=== PATIENT | male | born 1980 | race Caucasian/White ===

== ENCOUNTER 2018-02-13 15:46 | Emergency (ER) | payer MEDICARE, OTHER ==
[~2018-02-13] VITALS: Ht 170.2 cm; Wt 92.1 kg
[~2018-02-13 15:46] MED LIST: ARIP2TAB35 PO; DIAZ5TAB PO; DIVA500T2 PO; ONDA4TAB10 SL; SERT100T PO
[2018-02-13] MEDS ORDERED: IV NORMAL SALINE 1,000ML 1,000 ML IV SCH (16:11)
[2018-02-13 16:39] LABS: BASO % 0 % (0-3); EOS # 0.1 x10^3/uL (0.0-0.7); EOS % 2 % (0-3); HEMOGLOBIN 14.2 g/dL (13.0-17.5); LYMPH # 2.4 x10^3/uL (1.0-4.8); LYMPH % 41 % (24-48); MEAN CORPUSCULAR HEMOGLOBIN 29 pg (25-35); MEAN CORPUSCULAR HGB CONC 32 g/dL (31-37); MEAN CORPUSCULAR VOLUME 90 fL (79-100); MONO # 0.5 x10^3/uL (0.0-1.1); MONO % 8 % (0-9); NEUT # 2.9 x10^3uL (1.8-7.7); NEUT % 49 % (31-73); PLATELET COUNT 201 x10^3/uL (140-400); RED BLOOD COUNT 4.89 x10^6/uL (4.30-5.70); RED CELL DISTRIBUTION WIDTH 15.4 % (11.5-14.5)
--- NOTE | 2018-02-13 16:54 | RAD ---
CT HEAD INDICATION: 4 SEIZURES TODAY COMPARISON: None Available. Exposure: One or more of the following individualized dose reduction techniques were utilized for this examination: 1. Automated exposure control 2. Adjustment of the mA and/or kV according to patient size 3. Use of iterative reconstruction technique TECHNIQUE: 5 mm contiguous axial images were obtained from the skull base to the vertex in both bone and soft tissue algorithm. FINDINGS: No abnormal attenuation within the brain parenchyma. No evidence of acute intracranial hemorrhage. No extra-axial fluid collections. No mass effect or midline shift. Ventricular size is appropriate. Basal cisterns are patent. No fractures identified.Hernandez-white differentiation is preserved.Globes and orbits are within normal limits. Paranasal sinuses and mastoid air cells are clear. IMPRESSION: No acute intracranial findings. Electronically signed by: Andrew Mtz MD (02/13/2018 4:50 PM) [place] [id number]
--- NOTE | 2018-02-13 16:54 | RAD ---
PA and lateral chest. HISTORY: Seizure today altered level consciousness PA and lateral views were taken of the chest. There is linear scarring or atelectasis along the right diaphragm. There is minimal linear density from scarring or atelectasis in the left lung base. There are no other infiltrates. There is no effusion. Heart is normal in size. There is mild elevation of the right diaphragm. IMPRESSION: 1. Mild basilar linear scarring or atelectasis. Electronically signed by: Jonathon Salazar MD (02/13/2018 4:50 PM) [facility]
[2018-02-13 17:02] LABS: ALBUMIN 3.3 g/dL (3.4-5.0); CALCIUM 8.6 mg/dL (8.5-10.1); GFR 83.2; POTASSIUM 3.7 mmol/L (3.5-5.1); TOTAL BILIRUBIN 0.2 mg/dL (0.2-1.0); TOTAL PROTEIN 6.6 g/dL (6.4-8.2)
--- NOTE | 2018-02-13 17:03 | EKG ---
[address] [address] Test Date: 2018-02-13 Test Time: 16:55:23 Pat Name: SARAI SUGGS Department: Room: Gender: M [employer]: : 1980 Requested By: RAKAN AUSTIN Order Number: [id number] Reading MD: Andrew Griffin Measurements Intervals [place] Rate: 85 P: 39 WA: 150 QRS: -5 QRSD: 74 T: 55 QT: 334 QTc: 398 Interpretive Statements SINUS RHYTHM LEFTWARD AXIS QRS(T) CONTOUR ABNORMALITY CONSIDER ANTEROSEPTAL MYOCARDIAL DAMAGE POSSIBLY ABNORMAL ECG Electronically Signed On 02-19-2018 10:10:37 [employer] by Andrew Griffin
[2018-02-13 17:23] LABS: VAL ACID 92 mcg/mL (50-100)
--- NOTE | 2018-02-13 17:34 | PHYS DOC ---
Past History Past Medical History: Depression, Migraines, Seizure, Other Past Surgical History: Appendectomy, Cholecystectomy, Other Alcohol Use: None Drug Use: None Adult General Chief Complaint Chief Complaint: SEIZURE HPI HPI Patient is a 38 year old male with history of TBI who presents with of complaining generalized weakness and problems with concentration. Patient states he had history of seizure and was incarcerated for several days and did not get his seizure medication and said of Ativan he was treated with Narcan and he had 4 episodes of seizure while he was incarcerated. Patient states he was released 4 days ago and since then doesn't feel good. Patient complaining of generalized weakness and problem with his concentration and complaining of nausea, body ache, dizziness, blurred vision and not feeling good. Patient denies chest pain, focal neuro deficit, fever and chills. Review of Systems Review of Systems Constitutional: Denies fever or chills, reports generalized weakness [] Eyes: Denies change in visual acuity, redness, or eye pain, reports blurred vision [] HENT: Denies nasal congestion or sore throat [] Respiratory: Denies cough or shortness of breath [] Cardiovascular: No additional information not addressed in HPI [] GI: Denies abdominal pain, nausea, vomiting, bloody stools or diarrhea [] : Denies dysuria or hematuria [] Musculoskeletal: Denies back pain or joint pain [] Integument: Denies rash or skin lesions [] Neurologic: Reports dizziness and headache, denies focal weakness or sensory changes [] Endocrine: Denies polyuria or polydipsia [] All other systems were reviewed and found to be within normal limits, except as documented in this note. Current Medications Current Medications Current Medications Medications (Trade) Dose Ordered Sig/Osman Start Time Stop Time Status Last Admin Dose Admin Sodium Chloride 1,000 ml @ 1,000 mls/hr Q1H 02/13/18 16:11 02/13/18 17:10 DC 02/13/18 16:11 1,000 MLS/HR Allergies Allergies Allergies Coded Allergies Type Severity Reaction Last Updated Verified No Known Drug Allergies 08/05/15 No Physical Exam Physical Exam Constitutional: Well nourished, mild distress, non-toxic appearance. [] HENT: Normocephalic, atraumatic, oropharynx moist, no oral exudates, nose normal. [] Eyes: PERRLA, EOMI, conjunctiva normal, no discharge. [] Neck: Normal range of motion, no tenderness, supple, no stridor. [] Cardiovascular:Heart rate regular rhythm, no murmur [] Lungs & Thorax: Bilateral breath sounds clear to auscultation [] Abdomen: Bowel sounds normal, soft, no tenderness, no masses, no pulsatile masses. [] Skin: Warm, dry, no erythema, no rash. [] Back: No tenderness, no CVA tenderness. [] Extremities: No tenderness, no cyanosis, no clubbing, ROM intact, no edema. [] Neurologic: Alert and oriented X 3, normal motor function, normal sensory function, no focal deficits noted. [] Psychologic: Affect anxious, judgement normal, mood normal. [] Current Patient Data Vital Signs Vital Signs Date Time Temp Pulse Resp B/P (MAP) Pulse Ox O2 Delivery O2 Flow Rate FiO2 02/13/18 16:13 97.9 97 18 98 Room Air Lab Results Laboratory Tests Test 02/13/18 16:20 02/13/18 16:26 White Blood Count 6.0 x10^3/uL (4.0-11.0) Red Blood Count 4.89 x10^6/uL (4.30-5.70) Hemoglobin 14.2 g/dL (13.0-17.5) Hematocrit 44.0 % (39.0-53.0) Mean Corpuscular Volume 90 fL (79-100) Mean Corpuscular Hemoglobin 29 pg (25-35) Mean Corpuscular Hemoglobin Concent 32 g/dL (31-37) Red Cell Distribution Width 15.4 % (11.5-14.5) H Platelet Count 201 x10^3/uL (140-400) Neutrophils (%) (Auto) 49 % (31-73) Lymphocytes (%) (Auto) 41 % (24-48) Monocytes (%) (Auto) 8 % (0-9) Eosinophils (%) (Auto) 2 % (0-3) Basophils (%) (Auto) 0 % (0-3) Neutrophils # (Auto) 2.9 x10^3uL (1.8-7.7) Lymphocytes # (Auto) 2.4 x10^3/uL (1.0-4.8) Monocytes # (Auto) 0.5 x10^3/uL (0.0-1.1) Eosinophils # (Auto) 0.1 x10^3/uL (0.0-0.7) Basophils # (Auto) 0.0 x10^3/uL (0.0-0.2) Sodium Level 146 mmol/L (136-145) H Potassium Level 3.7 mmol/L (3.5-5.1) Chloride Level 110 mmol/L (98-107) H Carbon Dioxide Level 26 mmol/L (21-32) Anion Gap 10 (6-14) Blood Urea Nitrogen 15 mg/dL (8-26) Creatinine 1.0 mg/dL (0.7-1.3) Estimated GFR (Cockcroft-Gault) 83.2 BUN/Creatinine Ratio 15 (6-20) Glucose Level 114 mg/dL (70-99) H Lactic Acid Level 1.5 mmol/L (0.4-2.0) Calcium Level 8.6 mg/dL (8.5-10.1) Total Bilirubin 0.2 mg/dL (0.2-1.0) Aspartate Amino Transferase (AST) 17 U/L (15-37) Alanine Aminotransferase (ALT) 28 U/L (16-63) Alkaline Phosphatase 66 U/L (46-116) Creatine Kinase 77 U/L (39-308) Troponin I Quantitative < 0.017 ng/mL (0-0.055) Total Protein 6.6 g/dL (6.4-8.2) Albumin 3.3 g/dL (3.4-5.0) L Albumin/Globulin Ratio 1.0 (1.0-1.7) Valproic Acid Level 92 mcg/mL (50-100) Valproic Acid Last Dose Date 02/13/18 Valproic Acid Last Dose Time 0900 EKG EKG EKG interpreted by me. EKG at 1655 showed normal sinus rhythm at rate of 85, left bolden axis, poor R-wave progress in anteroseptal leads, no acute ST and T- wave abnormality. Radiology/Procedures Radiology/Procedures [address] [address] IMAGING REPORT Signed PATIENT: SARAI SUGGS ACCOUNT: [id number] : 1980 LOCATION: ER AGE: 38 SEX: M EXAM STATUS: REG ER ORD. PHYSICIAN: RAKAN AUSTIN MD REASON: ALOC PROCEDURE: CHEST PA & LATERAL PA and lateral chest. HISTORY: Seizure today altered level consciousness PA and lateral views were taken of the chest. There is linear scarring or atelectasis along the right diaphragm. There is minimal linear density from scarring or atelectasis in the left lung base. There are no other infiltrates. There is no effusion. Heart is normal in size. There is mild elevation of the right diaphragm. IMPRESSION: 1. Mild basilar linear scarring or atelectasis. Electronically signed by: Jonathon Salazar MD (02/13/2018 4:50 PM) [id number] DICTATED AND SIGNED BY: JONATHON SALAZAR MD DATE: 02/13/181648 CC: RAKAN AUSTIN MD; NON,STAFF ~ [place] [id number] IMAGING REPORT Signed PATIENT: SARAI SUGGS ACCOUNT: [id number] : 1980 LOCATION: ER AGE: 38 SEX: M EXAM STATUS: REG ER ORD. PHYSICIAN: RAKAN AUSTIN MD REASON: ALOC PROCEDURE: CT HEAD WO CONTRAST CT HEAD INDICATION: 4 SEIZURES TODAY COMPARISON: None Available. Exposure: One or more of the following individualized dose reduction techniques were utilized for this examination: 1. Automated exposure control 2. Adjustment of the mA and/or kV according to patient size 3. Use of iterative reconstruction technique TECHNIQUE: 5 mm contiguous axial images were obtained from the skull base to the vertex in both bone and soft tissue algorithm. FINDINGS: No abnormal attenuation within the brain parenchyma. No evidence of acute intracranial hemorrhage. No extra-axial fluid collections. No mass effect or midline shift. Ventricular size is appropriate. Basal cisterns are patent. No fractures identified.Hernandez-white differentiation is preserved.Globes and orbits are within normal limits. Paranasal sinuses and mastoid air cells are clear. IMPRESSION: No acute intracranial findings. Electronically signed by: Andrew Mtz MD (02/13/2018 4:50 PM) [facility] DICTATED AND SIGNED BY: ANDREW MTZ MD DATE: 02/13/18 6160 CC: RAKAN AUSTIN MD; NON,STAFF ~ Course & Med Decision Making Course & Med Decision Making Pertinent Labs and Imaging studies reviewed. (See chart for details) Evaluation of patient in ER showed 38-year-old male patient with TBI and sent incarceration with complaining of denies weakness and dizziness and headache after did not take his seizure medication during incarceration. She had unremarkable physical exam except for mild mental condition because of TBI. Orthostatic vitals was negative. Labs showed sodium of 146. Valproic acid was 92. Patient treated with IV fluid and instructed to increase fluid intake and continue her home medication and follow up with his primary care physician. Dragon Disclaimer Dragon Disclaimer This electronic medical record was generated, in whole or in part, using a voice recognition dictation system. Departure Departure: Impression: Primary Impression: Generalized weakness Additional Impressions: Hypernatremia History of seizure History of traumatic brain injury Disposition: 01 HOME, SELF-CARE (at 1757) Condition: IMPROVED Referrals: NON,STAFF (PCP) Patient Instructions: Dehydration, Adult, Weakness Additional Instructions: Drink plenty of liquids Follow-up with your primary care physician in 3-5 days Return to ER if not getting better Problem Qualifiers RAKAN AUSTIN MD Feb 13, 2018 17:34
[2018-02-13 17:52] LABS: BACTERIA,URINE 0 /HPF (0-FEW); BILIRUBIN,URINE NEG (NEG); CLARITY,URINE CLEAR; COLOR,URINE YELLOW; GLUCOSE,URINE NEG (NEG); NITRITE,URINE NEG (NEG); SQUAMOUS EPITHELIAL CELL,UR OCC /LPF; UROBILINOGEN,URINE 1 mg/dL (0.2 mg/dL); WBC,URINE RARE /HPF (0-4)
[2018-02-13 17:54] LABS: AMPHETAMINE/METHAMPHETAMINE NEG (NEG); BARBITURATES NEG (NEG); BENZODIAZEPINES POS (NEG); CANNABINOIDS NEG (NEG); COCAINE NEG (NEG); METHADONE NEG (NEG); OPIATES NEG (NEG); PHENCYCLIDINE NEG (NEG)
[2018-02-13 18:08] VITALS: BP 115/75
== END 2018-02-13 18:06 | disposition home or self-care (01) ==
LOC: ER 15:46
DX: R53.1 Weakness (principal); E87.0 Hyperosmolality and hypernatremia; R42 Dizziness and giddiness; R41.82 Altered mental status, unspecified; Z87.820 Personal history of traumatic brain injury; F32.9 Major depressive disorder, single episode, unspecified; G43.909 Migraine, unspecified, not intractable, without status migrainosus
CPT/HCPCS: 36415; 70450; 71046; 80053; 80164; 80307; 81001; 82550; 83605; 84484; 85025; 93005; 96360; 99284-25; J7030